=== PATIENT | female | born 1990 | race African-American/Black ===

== ENCOUNTER 2016-09-03 00:43 | Emergency (ER) | payer OTHER ==
[2016-09-03 01:16] LABS: BASOPHIL 0.2 % (0-2); EOSINOPHIL 0.6 % (0-5); HCT 31.2 % (37.0-47.0); HGB 9.6 g/dl (12.5-16.0); LYMPHOCYTE 19.8 % (15-48); MCH 24.9 pg (25.0-31.0); MCHC 30.8 g/dL (32.0-36.0); MCV 80.8 fL (78.0-100.0); MONOCYTE 6.5 % (0-12); MPV 11.4 fL (6.0-9.5); NEUTROPHIL 72.9 % (41-80); PLT 265 K/uL (150-400); RBC 3.86 M/uL (4.20-5.40); RDW 16.6 % (11.5-14.0); WBC 14.9 K/uL (4.0-10.5)
[2016-09-03 01:34] LABS: ALBUMIN 4.4 g/dL (3.5-5.0); BILIRUBIN - TOTAL 0.2 mg/dL (0.1-1.0); CREATININE 0.9 mg/dL (0.5-1.0); GLOBULIN (CALCULATION) 3.2 g/dL (2.2-4.2); POTASSIUM 3.7 mmol/L (3.5-5.1); TOTAL PROTEIN 7.6 g/dL (6.4-8.3)
[2016-09-03 02:48] LABS: BILIRUBIN NEGATIVE (NEGATIVE); BLOOD 3+ Ery/uL (NEGATIVE); CLARITY HAZY (CLEAR); COLOR STRAW (YELLOW); GLUCOSE (U) NORMAL (NORMAL); KETONE (U) NEGATIVE (NEGATIVE); LEUKOCYTES NEGATIVE Leu/uL (NEGATIVE); NITRITE NEGATIVE (NEGATIVE); PROTEIN 2+ mg/dL (NEGATIVE); SPECIFIC GRAVITY >=1.030 (1.001-1.030)
[2016-09-03 02:58] LABS: BACTERIA 1+; URINARY RBC TNTC; URINARY WBC RARE
== END 2016-09-03 03:47 | disposition home or self-care (01) ==
LOC: FER 00:43
PROVIDERS: Emergency Medicine Emergency Medical Services
DX: N13.2 Hydronephrosis with renal and ureteral calculous obstruction (principal); E86.9 Volume depletion, unspecified; R82.90 Unspecified abnormal findings in urine
CPT/HCPCS: 36415; 80053; 81001; 85025; 87088; J1170; J1885; J2405

== ENCOUNTER 2021-07-10 13:10 | Emergency (ER) | payer OTHER ==
[~2021-07-10 13:10] MED LIST: CLINDAMYCIN 15150 MG PO; NORCO 5-325 TA1 EACH PO; PROTONIX 40MG T40 MG PO
[2021-07-10 14:18] LABS: BASOPHIL 0.3 % (0-2); EOSINOPHIL 3.4 % (0-5); HCT 31.7 % (37.0-47.0); LYMPHOCYTE 24.8 % (15-48); MCH 26.5 pg (25.0-31.0); MCHC 31.5 g/dL (32.0-36.0); MCV 84.1 fL (78.0-100.0); MONOCYTE 6.4 % (0-12); NEUTROPHIL 64.8 % (41-80); NRBC 0; PLT 258 K/uL (150-400); RBC 3.77 M/uL (4.20-5.40); RDW 16.5 % (11.5-14.0); WBC 11.6 K/uL (4.0-10.5)
[2021-07-10 14:43] LABS: BUN/CREAT RATIO (CALC) 10.6 RATIO; CREATININE 0.66 mg/dL (0.51-0.95); POTASSIUM 3.2 mmol/L (3.5-5.1)
== END 2021-07-10 17:20 | disposition home or self-care (01) ==
LOC: FER 13:10
PROVIDERS: Nurse Practitioner Family
DX: O03.9 Complete or unspecified spontaneous abortion without complication (principal); F17.290 Nicotine dependence, other tobacco product, uncomplicated
CPT/HCPCS: 36415; 76817; 80048; 84702; 85025

== ENCOUNTER 2021-10-03 00:29 | Emergency (ER) | payer OTHER | END 2021-10-03 03:52 | disposition home or self-care (01) | LOC: FER 00:29 | DX: T40.2X1A Poisoning by other opioids, accidental (unintentional), initial encounter (principal); R41.82 Altered mental status, unspecified; F17.200 Nicotine dependence, unspecified, uncomplicated; Z28.310 Unvaccinated for COVID-19 | CPT/HCPCS: 71045; J1885; J2405 ==